=== PATIENT | female | born 1965 | race Caucasian/White ===

== ENCOUNTER → 2016-10-11 | Day surgery (SDC) | payer BC ==
[~2016-10-11] VITALS: Ht 170.2 cm; Wt 77.6 kg
[~2016-10-11] MED LIST: ELAVIL25 MG PO; FLEXERIL10 MG PO; HORMONE COMPOUND TOP; LEVOTHROID(SYN75 MCG PO; MAXALT10 MG PO; NEXIUM40 MG PO; PROPRANOLOL HCL40 MG PO; THERA-VITE W/ B1 TAB PO; ZANTAC 7575 MG PO; ZOCOR10 MG PO; ZOLOFT50 MG PO; [UNRECOGNIZED DRUG - OTHER] VAG
== END | disposition disaster alternative care site (69) ==
LOC: GPOC 09-11 09:00 → GEND 07:04
PROC: 0DB38ZX Excision of Lower Esophagus, Via Natural or Artificial Opening Endoscopic, Diagnostic (ICD-10-PCS; principal; 2016-10-11)
DX: K44.9 Diaphragmatic hernia without obstruction or gangrene (principal); K22.8 Other specified diseases of esophagus; K21.9 Gastro-esophageal reflux disease without esophagitis; G47.33 Obstructive sleep apnea (adult) (pediatric); G43.909 Migraine, unspecified, not intractable, without status migrainosus; Z90.49 Acquired absence of other specified parts of digestive tract; Z98.890 Other specified postprocedural states
CPT/HCPCS: J2001; J7030